=== PATIENT | female | born 1985 | race Caucasian/White ===

== ENCOUNTER 2024-07-07 20:31 | Emergency (ER) | payer MEDICAID ==
[~2024-07-07] VITALS: Ht 162.6 cm; Wt 111.2 kg
[~2024-07-07 20:31] MED LIST: ALPRAZOLAM0.5 MG PO; BENTYL 20MG20 MG/TAB PO; MACROBID 100 M100 MG PO; PHENERGAN 25 TA25 MG PO; PHENTERMINE15 MG PO; WELLBUTRIN XL300 M1 PO
[2024-07-07] MEDS ORDERED: levETIRAcetam 1,000 MG in Syringe 1 EACH IV ONE (20:45)
[2024-07-07 21:05] LABS: BASO # 0.08 K/mm3 (0.02-0.10); EOS # 0.44 K/mm3 (0.04-0.40); EOS % 4.4 % (1.0-5.0); HEMATOCRIT 39.5 % (37.0-47.0); HEMOGLOBIN 12.7 g/dL (12.5-16.0); LYMPH# 3.21 K/mm3 (1.50-4.00); MEAN CELL VOLUME 95 fl (78-100); MEAN CORPUSCULAR HEMOGLOBIN 30 pg (27-31); MEAN CORPUSCULAR HGB CONC 32 g/dL (33-37); MEAN PLATELET VOLUME 10.4 fl (7.4-10.4); MONO # 0.82 K/mm3 (0.20-0.80); NEU # 5.33 K/mm3 (1.40-6.50); PLATELET COUNT 207 K/mm3 (130-400); RED BLOOD COUNT 4.18 M/mm3 (4.10-5.30); RED CELL DISTRIBUTION WIDTH 12.3 % (11.5-14.5); WHITE BLOOD COUNT 9.9 K/mm3 (4.8-10.8)
[2024-07-07 21:11] LABS: ALBUMIN 4.4 g/dL (3.5-5.0)
[2024-07-07 21:12] LABS: CALCIUM 9.3 mg/dL (8.3-10.5)
[2024-07-07 21:13] LABS: TOTAL PROTEIN 6.3 g/dL (6.4-8.3)
[2024-07-07 21:15] LABS: TOTAL BILIRUBIN 0.2 mg/dL (0.2-1.2)
[2024-07-07] MEDS ORDERED: Ketorolac 30 MG/ML VIAL IV ONE (21:15)
[2024-07-07] MEDS ORDERED: Ondansetron 4 MG/2 ML VIAL IV ONE (21:45)
[2024-07-07] MEDS ORDERED: fentaNYL 100 MCG/2 ML VIAL IV SCH (22:00)
[2024-07-07] MEDS ORDERED: fentaNYL 100 MCG/2 ML VIAL IV PRN (23:39)
[2024-07-07] MEDS ORDERED: NS 500 ML IV SCH (23:45)
[2024-07-07] MEDS ORDERED: diphenhydrAMINE 50 MG/ML 1 ML VIAL IV ONE (23:45)
[2024-07-08 00:36] VITALS: BP 110/69
== END 2024-07-08 00:39 | disposition home or self-care (01) ==
LOC: ED 20:31
PROVIDERS: Nurse Practitioner Family
DX: R51.9 Headache, unspecified (principal); G40.909 Epilepsy, unspecified, not intractable, without status epilepticus; I45.81 Long QT syndrome; R79.9 Abnormal finding of blood chemistry, unspecified; Z91.040 Latex allergy status
CPT/HCPCS: J1200; J1885; J1953; J2405; J3010; J7040

== ENCOUNTER 2024-09-29 07:25 | Emergency (ER) | payer MEDICAID ==
[~2024-09-29] VITALS: Ht 162.6 cm; Wt 111.2 kg
[2024-09-29 08:24] VITALS: BP 125/72
[2024-09-29] MEDS ORDERED: PROMETHAZINE-D473 M1 PO (08:24)
== END 2024-09-29 08:30 | disposition home or self-care (01) ==
LOC: ED 07:25
DX: J06.9 Acute upper respiratory infection, unspecified (principal); Z91.040 Latex allergy status; Z87.891 Personal history of nicotine dependence